=== PATIENT | female | born 1960 | race Caucasian/White ===

== ENCOUNTER 2017-07-04 05:58 | Inpatient (IN) | payer BC, OTHER ==
[~2017-07-04] VITALS: Ht 160 cm; Wt 97.9 kg
[~2017-07-04 05:58] MED LIST: ASPI81TA81 PO; BENA20TA PO; CALC600T5 PO; DICL100T3 PO; FISHCAP4 PO; LEVO50TA4 PO; MULT1TAB46 PO; ROSU1TAB6 PO; TRAM50TA PO
[2017-07-04] MEDS ORDERED: POVIDONE IODINE 5% (ANTISEPSIS KIT) 4 APPLICATIONS EACH NARE PRN (06:30)
[2017-07-04] MEDS ORDERED: LACTATED RINGER'S 1000 ML IV PRN (06:30)
[2017-07-04] MEDS ORDERED: CHLORHEXIDINE GLUCONATE 2 % 1 PACK (2 CLOTHS) TOPICAL PRN (06:30)
[2017-07-04] MEDS ORDERED: METOPROLOL TARTRATE 25 MG TAB PO PRN (06:30)
[2017-07-04] MEDS ORDERED: THROMBIN (TOPICAL) 5,000 UNIT VIAL ONE (06:56)
[2017-07-04] MEDS ORDERED: GELFOAM SIZE 100 ONE (06:57)
[2017-07-04] MEDS ORDERED: GENTAMICIN SULFATE 80 MG/2 ML VIAL ONE (06:57)
[2017-07-04] MEDS ORDERED: BUPIVACAINE HCL PF 0.25% 30 ML VIAL ONE (06:57)
[2017-07-04] MEDS ORDERED: BUPIVACAINE LIPOSOME PF 1.3% 20 ML VIAL ONE (07:03)
[2017-07-04] MEDS ORDERED: ceFAZolin 2 GM PREMIX 0 ML ONE (07:42)
[2017-07-04] MEDS ORDERED: ACETAMINOPHEN 1000 MG/100 ML 100 ML IV ONE (07:55)
[2017-07-04] MEDS ORDERED: PROPOFOL 500 MG/50 ML INJ 100 ML ONE (07:56)
[2017-07-04] MEDS ORDERED: KETAMINE HCL 500 MG/5 ML VIAL ONE (08:28)
[2017-07-04] MEDS: ceFAZolin 1,000 MG/NS 100 ML IV SCH ×6 (08:30→12:24)
[2017-07-04] MEDS ORDERED: LIDOCAINE 1%/EPINEPHrine 1:100,000 SOLN 50 ML VIAL INFIL ONE (10:20)
[2017-07-04] MEDS ORDERED: BUPIVACAINE LIPOSOME PF 1.3% 20 ML VIAL INFIL ONE (11:00)
[2017-07-04] MEDS ORDERED: PHENYLEPH/NS 1000 MCG/10 ML SYR IV ONE (12:00)
[2017-07-04] MEDS ORDERED: ePHEDrine/NS 25 MG/5 ML SYRINGE IV ONE (12:00)
[2017-07-04] MEDS ORDERED: DEXAMETHASONE SOD PHOS 4 MG/ML VIAL IV ONE (12:00)
[2017-07-04] MEDS ORDERED: GLYCOPYRROLATE 1 MG/5 ML SYRINGE IV PUSH ONE (12:00)
[2017-07-04] MEDS ORDERED: LACTATED RINGER'S 1000 ML INJ 1,000 ML IV ONE (12:00)
[2017-07-04] MEDS ORDERED: LIDOCAINE HCL 1% PF 5 ML SYRINGE OTHER ONE (12:00)
[2017-07-04] MEDS ORDERED: SODIUM CHLOR 0.9% 250 ML INJ 250 ML IV ONE (12:00)
[2017-07-04] MEDS ORDERED: ROCURONIUM INJ 50 MG/5 ML SYRINGE IV PUSH ONE (12:00)
[2017-07-04] MEDS ORDERED: NORMOSOL R INJ 1,000 ML IV ONE (12:00)
[2017-07-04] MEDS ORDERED: ceFAZolin INJ 1,000 MG VIAL IV ONE (12:00)
[2017-07-04] MEDS ORDERED: PROPOFOL 200 MG/20 ML AMP IV ONE (12:00)
[2017-07-04] MEDS ORDERED: PHENYLEPHRINE HCL 10 MG/ML VIAL IV ONE (12:00)
[2017-07-04] MEDS ORDERED: PROPOFOL 200 MG/20 ML AMP ONE (12:22)
--- NOTE | 2017-07-04 15:03 | RADRPT ---
EXAM DATE/TIME: 07/04/2017 09:41 [place] COMPARISON: FLUOROSCOPY PORTABLE UP TO 1HR, July 04, 2017, 0:00. INDICATIONS : L4/5 laminectomy and PLIF. MEDICAL HISTORY : Unobtainable. SURGICAL HISTORY : Unobtainable. ENCOUNTER: Initial ACUITY: 1 day PAIN SCORE: Non-responsive. LOCATION: Lumbar spine. FINDINGS: The examination demonstrates fusion across the L4-L5 level. There are paired transpedicular screws. T he hardware appears well-positioned. The spacing material appears well positioned. CONCLUSION: 1. Uncomplicated lumbar fusion at L4-5. Christos Leo MD on July 04, 2017 at 15:00 Board Certified Radiologist. This report was verified electronically.
[2017-07-04] MEDS ORDERED: DO NOT ADM ANY ANTICOAGULANT DRUGS PRN (15:25)
[2017-07-04] MEDS ORDERED: NALOXONE HCL 0.4 MG/ML AMP IV PUSH PRN ×2 (15:30)
[2017-07-04] MEDS ORDERED: METHOCARBAMOL 500 MG TAB PO PRN (15:30)
[2017-07-04] MEDS ORDERED: HYDROmorphone HCL PCA 6 MG/30 ML IV SCH (15:30)
[2017-07-04] MEDS ORDERED: ACETAMINOPHEN/HYDROcodone 325 MG/5 MG TAB PO PRN (15:30)
[2017-07-04] MEDS ORDERED: MIDAZOLAM HCL 2 MG/2 ML VIAL ONE (15:42)
[2017-07-04] MEDS: 1/2 NS + KCL 20 MEQ INJ 1,000 ML IV SCH ×2 (16:00→21:21)
--- NOTE | 2017-07-04 16:03 | PD.OP ---
Operative Report Date of Surgery: Jul 04, 2017 Preoperative Diagnosis: (1) Spondylolisthesis of lumbar region (2) Lumbar canal stenosis (3) Lumbar radiculopathy Grade 1 L4-5 spondylolisthesis Lumbar stenosis Right L5 radiculopathy Postoperative Diagnosis: (1) Spondylolisthesis of lumbar region (2) Lumbar canal stenosis (3) Lumbar radiculopathy Grade 1 L4-5 spondylolisthesis Lumbar stenosis Right L5 radiculopathy Procedure: 1. Bilateral L4-5 decompressive semi-laminectomy, left medial facetectomy 2. Right L4 5 discectomy, facetectomy, foraminotomy 3. L4-5 interbody fusion with PEEK cage, lamina autograft and allograft bone- microtechnique 4. Bilateral L4 5 posterior instrumentation with pedicle screw fixation 5. Intraoperative reduction L4 5 grade 1 spondylolisthesis Anesthesia: Gen. endotracheal Surgeon: Juan Carlos Adan Cloth Bolt Bander(s): Priscilla Aguero Operation and Findings: Findings: Severe subluxation of the right L4-5 facet was severe lateral recess, foraminal and canal stenosis. Procedure in detail The patient was brought to the operating room and general endotracheal anesthesia induced without difficulty Lines were established per Anesthesia Sequential compression devices were in place The patient was positioned prone on the concentric Anup table with the side bolsters and all extremities appropriately padded Leads for intraoperative neuro monitoring were placed prior to positioning and a baseline study obtained Appropriate timeout procedure was performed with all personnel present and in agreement The lumbar region was shaved with clippers and sterilely prepped and draped 1% Xylocaine with epinephrine was used for local infiltration over the incision site which was made approximately 5.5 cm lateral to the midline at the bilateral L4-5 level and carried sharply down to the fascia. The fascia was sharply incised and finger dissection was used to separate the normal intermuscular plane at the bilateral L4-5 level, allowing direct palpation of the junction of the and pedicle and transverse process on each side. The entry point for the pedicle screws were determined by anatomic and radiographic landmarks. Using AP and lateral C-arm imaging, the Jamshidi needle was guided through the bilateral L4 and L5 pedicle. The intraoperative C-arm imaging was used to verify appropriate Jamshidi needle placement. The wires were then placed through the Jamshidi needle cannulas, and the cannula was withdrawn. The wires were temporarily clipped away from the operative field. On the right side Ortiz elevator was used for subperiosteal elevation of paraspinous musculature and fascia away from the lamina and spinous processes The deep self-retaining retractor was placed The appropriate levels were verified with intraoperative C-arm The microscope was moved into place and used for the remainder of the procedure including the closure The TPS drill with a 5 mm bone bur followed by the Kerrison rongeur was used to remove the inferior two thirds of the bilateral L4 lamina and the superior third of the bilateral L5 lamina along with a moderate portion of the left L4 5 medial facet and the entire right L4-5 facet. This was performed starting on the left side, and then working across midline towards the right. The foraminotomy was performed on the left side with the 2 and 3 mm Kerrison rongeur. Hypertrophied ligamentum flavum was elevated away from the thecal sac and exiting nerve roots with the thin ligament dissector and resected with a 15 blade knife and Kerrison rongeur. Fragments of bone from the subluxed right L4-5 facet were lifted away from the exiting L4 and L5 nerve roots with the thin ligament dissector and resected with the Kerrison rongeur. The thecal sac and exiting nerve root were freed up from surrounding adhesions with the microdissectors and gently retracted medially revealing the underlying disc and annulus. There was moderate subannular disc herniation. The right L4-5 annulus was incised with the 11 blade knife and discectomy performed with pituitary biopsy forceps and straight and angled curettes The endplate scrapers were used to decorticate the endplates and any remaining debris was removed with the antibiotic irrigation and suction and pituitary biopsy forceps A mixture of retained lamina autograft and demineralized bone matrix was placed into the anterior lateral aspect of the L4 5 interspace using the funnel. The appropriate size 8 mm lordotic PEEK cage was packed with retained lamina cancellus autograft and a small amount of demineralized bone matrix The cage was placed at the L4-5 level with a good fit of the cage. The placement was checked under the microscope and with intraoperative C-arm and felt to be satisfactory. The thecal sac and nerve roots were probed with the long blunt nerve hook and felt to be well decompressed The cannulated 4.5 mm tap was then used to prepare the pedicle screw sites on each side, with the dilators used to protect the surrounding tissue. The appropriate length Spine Wave Sniper percutaneous cannulated pedicle screw attached to the MIS extenders were placed into the bilateral L4 and L5 pedicle using the existing guidewires which were then removed. The 4.5 mm diameter screws were used at the L4 level with 5.5 mm diameter screws at the bilateral L5 level. Pedicle screw placement was checked with intraoperative C-arm imaging and felt to be satisfactory. The percutaneous rods were placed across the pedicle screws on each side. The locking caps were secured with the torque wrench and anti-torque device Compression and alignment were achieved as necessary with the rods and reducers. The L5 screws were tightened first and the reducers were used to bring the subluxed L5 vertebral body back into alignment prior to final tightening under compression in order to restore lordosis. The entire construct was checked with intraoperative C-arm and felt to be satisfactory The region was well irrigated with antibiotic irrigation The posterior lateral structures at the bilateral L4 5 levels were decorticated with the TPS drill The shavings were left in place, to which was added the remaining autograft and allograft bone which was firmly packed in place for the posterior lateral fusion. The 7 mm flat fluted drain was left in place at the operative side and brought out through a incision at the upper lumbar region and secured to the skin with nylon suture and attached to sterile suction bleeding was carefully controlled with the bipolar forceps The closure was performed with 0 Vicryl interrupted for the deep and superficial fascia, with 3-0 Vicryl for the subcutaneous closure and 4-0 Vicryl running subcuticular closure. Dressings sterile Mastisol, Steri-Strips and Primapore was placed The patient was turned into supine position and taken to recovery room in stable condition All counts were correct at the end of the case Estimated blood loss was 275 cc No specimen was sent to pathology Neuro monitoring was stable during the procedure Juan Carlos Adan MD Jul 04, 2017 16:03
[2017-07-04 20:20] VITALS: BP 145/75; PULSE 96; RESP 18; TEMP 97.1; O2SAT 93
[2017-07-04 20:46] VITALS: O2SAT 95
[2017-07-04] MEDS: DOCUSATE SODIUM 100 MG CAP PO SCH (21:00)
[2017-07-04] MEDS: KETOROLAC TROMETHAMINE 30 MG/ML (IVP) VIAL IV PUSH SCH (21:20)
[2017-07-04] MEDS: PCA - TOTAL MG DILAUDID DELIVERED PER SHIFT OTHER SCH (22:00)
[2017-07-05] VITALS (8 sets, daily range): BP systolic 130–165; BP diastolic 62–75; PULSE 76–106; RESP 16–18; TEMP 96.9–98; O2SAT 92–95
[2017-07-05] MEDS: 1/2 NS + KCL 20 MEQ INJ 1,000 ML IV SCH ×3 (01:02→22:11)
[2017-07-05] MEDS: KETOROLAC TROMETHAMINE 30 MG/ML (IVP) VIAL IV PUSH SCH ×3 (05:12→22:13)
[2017-07-05] MEDS: PCA - TOTAL MG DILAUDID DELIVERED PER SHIFT OTHER SCH ×3 (06:00→22:00)
[2017-07-05 07:31] LABS: AUTOMATED NEUTROPHIL # 8.6 TH/MM3 (1.8-7.7); BASOPHIL % 0.1 % (0.0-2.0); HEMATOCRIT 37.3 % (35.0-46.0); HEMOGLOBIN 12.8 GM/DL (11.6-15.3); LYMPH % 11.6 % (9.0-44.0); LYMPHOCYTE # 1.2 TH/MM3 (1.0-4.8); MEAN CORPUSCULAR HEMOGLOBIN 32.3 PG (27.0-34.0); MEAN CORPUSCULAR HGB CONC 34.3 % (32.0-36.0); MEAN PLATELET VOLUME 7.8 FL (7.0-11.0); MONO % 6.7 % (0.0-8.0); MONOCYTE # 0.7 TH/MM3 (0-0.9); NEUT % 81.6 % (16.0-70.0); PLATELET COUNT 291 TH/MM3 (150-450); RED BLOOD COUNT 3.96 MIL/MM3 (4.00-5.30); RED CELL DISTRIBUTION WIDTH 13.4 % (11.6-17.2); WHITE BLOOD COUNT 10.5 TH/MM3 (4.0-11.0)
[2017-07-05] MEDS: DOCUSATE SODIUM 100 MG CAP PO SCH ×2 (07:43→19:32)
[2017-07-05 07:51] LABS: BICARBONATE 25.5 MEQ/L (21.0-32.0); CALCIUM 8.1 MG/DL (8.5-10.1); CREATININE 0.9 MG/DL (0.50-1.00)
[2017-07-05] MEDS: ACETAMINOPHEN/HYDROcodone 325 MG/10 MG TAB PO PRN (09:45)
--- NOTE | 2017-07-05 19:37 | HHI.NSPN ---
History Chief Complaint: low back pain Interval History 57-year-old female status post L4 5 laminectomy, interbody fusion for grade 1 L4 -L5 spondylolisthesis with stenosis, right lumbar radiculopathy on 07/04/17. Out of bed with therapy today. Moderate low back pain control with JEWELRY ESTIMATOR. No complaint of lower extremity pain weakness or numbness. She has some discomfort over the left low back and upper gluteal region. System Review Comments No nausea or vomiting. No headache, visual symptoms. Occasional paresthesias in the hands. No upper extremity weakness. Exam Results Vital Signs Date Time Temp Pulse Resp B/P (MAP) Pulse Ox O2 Delivery O2 Flow Rate FiO2 07/05/17 16:00 97.6 78 18 142/67 (92) 95 07/05/17 10:40 Nasal Cannula 2.00 Intake and Output 07/05/17 07/05/17 07/06/17 08:00 16:00 00:00 Intake Total 2220 ml 600 ml Output Total 750 ml 850 ml Balance 1470 ml -250 ml Physical Examination General: Awake and alert. No apparent distress Respirations: Clear and regular, nonlabored Cardiac regular rhythm Abdomen: Soft nontender Extremities: No edema or cyanosis Skin: No skin lesion or rash. Mild erythema over the chin Neurologic: Awake and alert oriented conversant appropriate Speech clear Sensation intact by touch all extremities Strength 5/5 nature flexion-extension groups all extremities Dressing dry and intact Lab, Micro, Other Results Laboratory Tests Test 07/05/17 06:30 White Blood Count 10.5 TH/MM3 Red Blood Count 3.96 MIL/MM3 Hemoglobin 12.8 GM/DL Hematocrit 37.3 % Mean Corpuscular Volume 94.0 FL Mean Corpuscular Hemoglobin 32.3 PG Mean Corpuscular Hemoglobin Concent 34.3 % Red Cell Distribution Width 13.4 % Platelet Count 291 TH/MM3 Mean Platelet Volume 7.8 FL Neutrophils (%) (Auto) 81.6 % Lymphocytes (%) (Auto) 11.6 % Monocytes (%) (Auto) 6.7 % Eosinophils (%) (Auto) 0.0 % Basophils (%) (Auto) 0.1 % Neutrophils # (Auto) 8.6 TH/MM3 Lymphocytes # (Auto) 1.2 TH/MM3 Monocytes # (Auto) 0.7 TH/MM3 Eosinophils # (Auto) 0.0 TH/MM3 Basophils # (Auto) 0.0 TH/MM3 CBC Comment DIFF FINAL Differential Comment Blood Urea Nitrogen 16 MG/DL Creatinine 0.90 MG/DL Random Glucose 105 MG/DL Calcium Level 8.1 MG/DL Sodium Level 142 MEQ/L Potassium Level 4.2 MEQ/L Chloride Level 110 MEQ/L Carbon Dioxide Level 25.5 MEQ/L Anion Gap 7 MEQ/L Estimat Glomerular Filtration Rate 64 ML/MIN Medical Decision Making Impression and Plan Impression: 1. Stable neurologic exam postoperative. No complaint of residual lower extremity radicular pain. Plan: Continue physical therapy Out of bed with LSO Advance diet as tolerated Weaned JEWELRY ESTIMATOR pump Discontinue Barney catheter Anticipate probable discharge home 07/06/17 Juan Carlos Adan MD Jul 05, 2017 19:37
[2017-07-05] MEDS: DOCUSATE SODIUM 50 MG/SENNA 8.6 MG TAB PO SCH (22:13)
[2017-07-06] VITALS: BP 125/66; PULSE 99; RESP 17; TEMP 97; O2SAT 92
[2017-07-06 04:00] VITALS: BP 146/78; PULSE 89; RESP 17; TEMP 97.6; O2SAT 92
[2017-07-06] MEDS: KETOROLAC TROMETHAMINE 30 MG/ML (IVP) VIAL IV PUSH SCH (05:18)
[2017-07-06] MEDS: PCA - TOTAL MG DILAUDID DELIVERED PER SHIFT OTHER SCH (06:00)
[2017-07-06] MEDS: DOCUSATE SODIUM 50 MG/SENNA 8.6 MG TAB PO SCH (07:19)
[2017-07-06] MEDS: ACETAMINOPHEN/HYDROcodone 325 MG/10 MG TAB PO PRN ×2 (07:24→11:35)
[2017-07-06 08:00] VITALS: BP 129/63; PULSE 81; RESP 18; TEMP 98.6; O2SAT 93
[2017-07-06] MEDS ORDERED: HYDR-3583 PO (10:13)
--- NOTE | 2017-07-06 10:13 | HHI.DCPOC ---
Discharge Care Plan Diagnosis: (1) Lumbar radiculopathy (2) Lumbar canal stenosis (3) Spondylolisthesis of lumbar region Your Health Problems Are: Difficulty with ADL Incision/Drains Exercise Tolerance Chronic Pain Goals to Promote Your Health * To prevent worsening of your condition and complications * To maintain your health at the optimal level Directions to Meet Your Goals Take your medications as prescribed Follow your dietary instruction Follow activity as directed Keep your appointments as scheduled Take your immunizations and boosters as scheduled If your symptoms worsen call your PCP, if no PCP go to Urgent Care Center or Emergency Room Smoking is Dangerous to Your Health. Avoid second hand smoke Call the 24-hour hour crisis hotline for domestic abuse at Juan Carlos Adan MD Jul 06, 2017 10:13
--- NOTE | 2017-07-06 10:17 | HHI.DS ---
Discharge Summary Admission Date Jul 04, 2017 at 05:58 Discharge Date: Jul 06, 2017 Admitting Diagnosis Lumbar stenosis Lumbar radiculopathy Grade 1 L4-L5 spondylolisthesis (1) Lumbar radiculopathy Diagnosis: Principal ICD Code: M54.16 - Radiculopathy, lumbar region (2) Lumbar canal stenosis Diagnosis: Secondary ICD Code: M48.061 - Spinal stenosis, lumbar region without neurogenic claudication (3) Spondylolisthesis of lumbar region Diagnosis: Secondary ICD Code: M43.16 - Spondylolisthesis, lumbar region Procedures 07/04/17: L4 5 decompressive semi-laminectomy, discectomy, right facetectomy, interbody fusion,PEEK cage, autograft and allograft bone, posterior instrumentation CBC/BMP: 07/05/17 0630 07/05/17 0630 Significant Findings Laboratory Tests Test 07/04/17 06:25 07/05/17 06:30 Red Blood Count 3.96 MIL/MM3 (4.00-5.30) Neutrophils (%) (Auto) 81.6 % (16.0-70.0) Neutrophils # (Auto) 8.6 TH/MM3 (1.8-7.7) Calcium Level 8.1 MG/DL (8.5-10.1) Chloride Level 110 MEQ/L (98-107) Estimat Glomerular Filtration Rate 64 ML/MIN (>89) PE at Discharge Respirations: Clear to Auscultation Cardiac regular Sensation intact by touch lower extremities Strength within normal limits bilateral lower extremities Dressing dry and intact Pt Condition on Discharge: Good Discharge Disposition: Discharge Home Discharge Instructions DIET: Follow Instructions for: As Tolerated, No Restrictions ACTIVITIES You can perform: Weight Bearing As Declan Activities to Avoid: Lifting/Bending, Strenuous Activity ADDITIONAL Activity Instructio: LSO brace when out of bed New Medications: Hydrocodone/Acetaminophen (Hydrocodone-Acetamin 10-325 mg) 10 Mg-325 Mg Tablet 1 TAB PO Q4H PRN for PAIN SCALE 6 TO 10, #60 TAB 0 Refills Continued Medications: Benazepril (Benazepril) 20 Mg Tab 20 MG PO BID for Blood Pressure Management, #60 TAB 0 Refills Calcium Carbonate (Calcium) 600 Mg Tab 1 TAB PO DAILY Levothyroxine (Levothyroxine) 50 Mcg Tab 50 MCG PO DAILY for Thyroid, #30 TAB 0 Refills Multiple Vitamin (Multi Vitamin Daily) 1 Tab Tab 1 TAB PO DAILY Rosuvastatin (Rosuvastatin) 10 Mg Tab 20 MG PO HS for Cholesterol Management, TAB 0 Refills Tramadol (Tramadol) 50 Mg Tab 50 MG PO Q6H PRN for PAIN, TAB 0 Refills Discontinued Medications: Aspirin DR (81) 81 Mg Tabdr 1 TAB PO DAILY Diclofenac Sodium ER 24 HR (Diclofenac Sodium ER 24 HR) 100 Mg Shirley 50 MG PO DAILY, TAB 0 Refills Fish Oil-Cholecalciferol (Fish Oil + D3) 1,200-1,000 Mg-Unit Cap 1 CAP PO DAILY for Nutritional Supplement, #30 CAP 0 Refills Juan Carlos Adan MD Jul 06, 2017 10:17
[2017-07-06] MEDS ORDERED: DILA2TAB4 PO (11:09)
--- NOTE | 2017-07-06 12:26 | HHI.NSPN ---
History Chief Complaint: Low back pain. Interval History 07/05: 57-year-old female status post L4 5 laminectomy, interbody fusion for grade 1 L4-L5 spondylolisthesis with stenosis, right lumbar radiculopathy on . Out of bed with therapy today. Moderate low back pain control with HEMMER LOCKSTITCH. No complaint of lower extremity pain weakness or numbness. She has some discomfort over the left low back and upper gluteal region. 07/06: The patient is awake & alert sitting on the edge of the bed when seen. She has the rolling walker in front of her. She says she is doing good. She does have some pain to the low back and says that the medication gives her about three hours of relief. She denies any pain, numbness or tingling to the lower extremities. Exam Results 07/04/17 07/04/17 07/05/17 07/05/17 07/06/17 07/06/17 05:59 17:59 05:59 17:59 05:59 17:59 Intake Total 2050 ml 1240 ml 1820 ml 480 ml 1070 ml Output Total 2675 ml 850 ml 1600 ml Balance -625 ml 390 ml 220 ml 480 ml 1070 ml Intake Oral 240 ml 1320 ml 480 ml 720 ml IV Total 2050 ml 1000 ml 500 ml 350 ml Output Urine Total 1150 ml 850 ml 1600 ml Estimated Blood Loss 275 ml Other 1250 ml # Voids 3 # Bowel Movements 0 0 0 0 Vital Signs Date Time Temp Pulse Resp B/P (MAP) Pulse Ox O2 Delivery O2 Flow Rate FiO2 07/06/17 08:00 98.6 81 18 129/63 (85) 93 07/06/17 06:00 18 07/06/17 04:00 97.6 89 17 146/78 (100) 92 07/06/17 00:00 97.0 99 17 125/66 (85) 92 07/05/17 22:00 17 07/05/17 20:46 94 21 07/05/17 19:45 98.0 90 18 165/75 (105) 93 1/17/18 16:00 97.6 78 18 142/67 (92) 95 07/05/17 14:00 16 07/05/17 12:00 96.9 83 17 139/69 (92) 92 07/05/17 10:40 94 Nasal Cannula 2.00 07/05/17 09:00 97.6 76 18 131/73 (92) 94 07/05/17 07:10 Nasal Cannula 2.00 07/05/17 06:00 17 07/05/17 03:30 97.2 81 16 130/62 (84) 93 07/05/17 00:20 97.3 106 17 130/72 (91) 92 07/04/17 22:00 18 07/04/17 21:02 93 Nasal Cannula 2.00 07/04/17 20:46 95 Nasal Cannula 3.00 07/04/17 20:20 97.1 96 18 145/75 (98) 93 07/04/17 18:00 88 16 130/71 (90) 95 Nasal Cannula 3 07/04/17 17:00 80 16 142/81 (101) 96 Nasal Cannula 3 07/04/17 16:49 16 07/04/17 16:30 82 16 120/66 (84) 94 Nasal Cannula 3 07/04/17 16:15 86 16 113/63 (80) 94 Nasal Cannula 3 07/04/17 16:00 86 16 112/63 (79) 94 Nasal Cannula 3 07/04/17 15:45 84 16 119/67 (84) 94 Nasal Cannula 3 07/04/17 15:30 86 16 110/62 (78) 94 Nasal Cannula 3 07/04/17 15:23 98.1 88 16 110/55 (73) 92 Nasal Cannula 3 07/04/17 06:51 98.4 78 16 138/74 (95) 96 Physical Examination General: Awake & alert, readily interacts, affect normal, no apparent distress. Respirations: CTAB w/o W/R/R, equal excursion, nonlaboured, on RA. Cardiac S1S2 w/RRR w/o M/G/R. Abdomen: Soft, nontender, bowel sounds not appreciated. Extremities: ESTRADA, mild proximal left leg pain secondary to prior injury, no evident clubbing or deformity. Midline lumbar spine minimally TTP. Dry & intact dressings to bilateral lumbar surgical incisions, trace dried drainage to the left lateral dressing, no erythema, streaking or active drainage, incisions minimally TTP. Neurologic: AAOx3. Speech clear & appropriate. Follows simple commands w/o difficulty. Sensation to light touch intact to the lower extremities. Motor strength is 4+/5 to the right hamstring otherwise it is 5/5 to all major flexion & extension muscle groups to the lower extremities. Lab, Micro, Other Results Recent Impressions Lumbar Spine X-Ray 07/04/17 0000 Signed Impressions: Service Date/Time: Tuesday, July 04, 2017 09:41 - CONCLUSION: 1. Uncomplicated lumbar fusion at L4-5. Christos Leo MD Laboratory Tests Test 07/04/17 06:25 07/05/17 06:30 Nasal Screen MRSA (PCR) MRSA NOT DETECTED White Blood Count 10.5 TH/MM3 Red Blood Count 3.96 MIL/MM3 Hemoglobin 12.8 GM/DL Hematocrit 37.3 % Mean Corpuscular Volume 94.0 FL Mean Corpuscular Hemoglobin 32.3 PG Mean Corpuscular Hemoglobin Concent 34.3 % Red Cell Distribution Width 13.4 % Platelet Count 291 TH/MM3 Mean Platelet Volume 7.8 FL Neutrophils (%) (Auto) 81.6 % Lymphocytes (%) (Auto) 11.6 % Monocytes (%) (Auto) 6.7 % Eosinophils (%) (Auto) 0.0 % Basophils (%) (Auto) 0.1 % Neutrophils # (Auto) 8.6 TH/MM3 Lymphocytes # (Auto) 1.2 TH/MM3 Monocytes # (Auto) 0.7 TH/MM3 Eosinophils # (Auto) 0.0 TH/MM3 Basophils # (Auto) 0.0 TH/MM3 CBC Comment DIFF FINAL Differential Comment Blood Urea Nitrogen 16 MG/DL Creatinine 0.90 MG/DL Random Glucose 105 MG/DL Calcium Level 8.1 MG/DL Sodium Level 142 MEQ/L Potassium Level 4.2 MEQ/L Chloride Level 110 MEQ/L Carbon Dioxide Level 25.5 MEQ/L Anion Gap 7 MEQ/L Estimat Glomerular Filtration Rate 64 ML/MIN Medical Decision Making Impression and Plan Impression: 1. Stable neurologic exam postoperative. No complaint of residual lower extremity radicular pain. The patient continues to do well and remains neurologically intact. There is no radicular pain noted upon evaluation. POD #2 () s/p: 1. Bilateral L4-5 decompressive semi-laminectomy, left medial facetectomy 2. Right L4 5 discectomy, facetectomy, foraminotomy 3. L4-5 interbody fusion with PEEK cage, lamina autograft and allograft bone- microtechnique 4. Bilateral L4 5 posterior instrumentation with pedicle screw fixation 5. Intraoperative reduction L4 5 grade 1 spondylolisthesis Postoperative Diagnosis: (1) Spondylolisthesis of lumbar region (2) Lumbar canal stenosis (3) Lumbar radiculopathy Grade 1 L4-5 spondylolisthesis Lumbar stenosis Right L5 radiculopathy Plan: PT eval & tx. Out of bed with LSO. Oral pain meds. Will discharge patient home. Benjamin Tadeo Jul 06, 2017 12:26
[2017-07-06] MEDS ORDERED: WALKER WHEELS/F1 MIS (12:27)
== END 2017-07-06 13:12 | disposition home or self-care (01) | DRG 460 ==
LOC: HSDI 05:58 → N06A 20:21
PROVIDERS: ADMIT Neurological Surgery; ATTEND Neurological Surgery
PROC: 01NB0ZZ Release Lumbar Nerve, Open Approach (ICD-10-PCS; 2017-07-04)
PROC: 0SB20ZZ Excision of Lumbar Vertebral Disc, Open Approach (ICD-10-PCS; 2017-07-04)
PROC: 4A11X4G Monitoring of Peripheral Nervous Electrical Activity, Intraoperative, External Approach (ICD-10-PCS; 2017-07-04)
PROC: 0SG00AJ Fusion of Lumbar Vertebral Joint with Interbody Fusion Device, Posterior Approach, Anterior Column, Open Approach (ICD-10-PCS; principal; 2017-07-04 08:28)
DX: M43.16 Spondylolisthesis, lumbar region (principal); I10 Essential (primary) hypertension; G89.29 Other chronic pain; M48.061 Spinal stenosis, lumbar region without neurogenic claudication; M54.16 Radiculopathy, lumbar region; M51.26 Other intervertebral disc displacement, lumbar region; E03.9 Hypothyroidism, unspecified; Z88.0 Allergy status to penicillin
CPT/HCPCS: 72100; 76000; 80048; 85025; 86850; 86900; 86901; 87641; 94150; C1713; C9290; J0131; J0690; J1100; J1170; J1580; J1885; J2250; J2370; J3010; J7050; J7120; L0484